=== PATIENT | female | born 1980 | race Caucasian/White ===

== ENCOUNTER 2021-05-07 20:48 | Emergency (ER) | payer MEDICARE, MEDICAID, SELFPAY ==
[2021-05-07] VITALS (17 sets, daily range): BP systolic 163–177; BP diastolic 79–105; PULSE 108–124; RESP 5–26; TEMP 36.7; O2SAT 96–99
--- NOTE | 2021-05-07 21:45 | W.ED.GENAD ---
Discharge Plan Disposition Patient Disposition: HOME Condition: Improving Discharge Details Clinical Impression: Muscle spasm of both lower legs Primary Care Provider: Kym Ríos ED Provider: Chen Nath Home Meds and New Rx's Prescriptions: Continued rizatriptan 10 mg tablet 10 mg PO ONCE RF: 0 baclofen 5 mg tablet 5 mg PO DAILY PRNRF: 0 budesonide-formoterol [Symbicort] 80-4.5 mcg/actuation HFA aerosol inhaler 2 puff inhalation BID Qty: 10.2 RF: 2 atorvastatin 40 mg tablet 40 mg PO DAILY RF: 0 losartan 25 mg tablet 25 mg PO DAILY RF: 0 Hold Instructions: Home Medication placed on hold at Doctor's office albuterol sulfate [Ventolin HFA] 90 mcg/actuation HFA aerosol inhaler 2 puff inhalation Q6H PRNRF: 0 metformin 500 mg tablet 500 mg PO BID Qty: 180 RF: 3 lamotrigine 100 mg tablet 100 mg PO BID Qty: 180 RF: 3 famotidine 20 mg tablet 20 mg PO QHS Qty: 90 RF: 3 escitalopram oxalate 20 mg tablet 20 mg PO BID Qty: 180 RF: 3 baclofen 10 mg tablet 10 mg PO TID Qty: 270 RF: 3 amlodipine 5 mg tablet 5 mg PO DAILY Qty: 90 RF: 3 No Action quetiapine [Seroquel] 25 mg tablet 25 mg PO DAILY RF: 0 (DME) Depend Easy Fit Undergarments Misc See Rx Instructions .ROUTE .MEDSUPPLY Qty: 10 RF: 0 (DME) blood-glucose meter Kit See Rx Instructions .ROUTE .MEDSUPPLY Qty: 1 RF: 0 (DME) lancets [Ultra Fine Lancets] 30 gauge misc See Rx Instructions .ROUTE .MEDSUPPLY Qty: 100 RF: 0 Women's Multivitamin 18 mg iron-400 mcg-500 mg tablet 1 tab PO DAILY RF: 0 tolterodine 4 mg capsule,extended release 24hr 4 mg PO DAILY Qty: 90 RF: 3 calcium carbonate [Oyster Shell Calcium] 500 mg calcium (1,250 mg) tablet 500 mg PO TID Qty: 270 RF: 3 nicotine (polacrilex) [Nicorette] 4 mg lozenge 4 mg buccal Q6H PRN (Reason: nicotine cravings) RF: 0 Discharge Instructions Instructions: Muscle Spasm (ED) Additional Instructions: Follow up with primary care provider in 3-5 days. Return to ED sooner if any worsening or concerns. Increase oral fluids. Please take Tylenol or Ibuprofen with food every 4-6 hours as needed for pain and swelling. Follow-up with PCP your neurologist as needed. Referrals: Kym Ríos DO [Primary Care Provider] - Discharge Data Discharge Date/Time-TO BE ENTERED AT DEPARTURE: 05/08/21 00:20 Medical Decision Making 40-year-old female with a history of multiple sclerosis, asthma, bipolar COPD type 2 diabetes, obesity presents to the ER with chief complaint of 10 out of 10 pain in her right leg from the knee to her foot. Upon initial exam patient is diaphoretic, has increased pain and spasm noted with palpation or any movement. She reports that this began approximately 2 hours prior to arrival. She denies any similar episodes prior to this. She does take baclofen 3 times daily which she did take prior to arrival. She reports taking her normal medications as directed. CBC shows white blood cell count of 15.69 hemoglobin 10.4 hematocrit 34.6 platelets are 618 absolute neutrophils 11.38 CMP shows sodium 142, potassium 3.9 anion gap 16.0 BUN 9 creatinine 1.1 GFR is 54, glucose 158 Urinalysis and bladder scan added on. Patient reevaluation. No more spasming noted patient appears much more comfortable. She is able to move both lower extremities at baseline for her. She remained afebrile heart rate is 108. Fasciculations have subsided at this time. Chart reviewed from April 23 and she was tachycardic at that time as well. 0189: Call made to caregiver Peg who reports she does get confused frequently. Call made to patients ride, plan for DC. Patient discharged via wheelchair hemodynamically stable and at baseline. This text was generated using [employer] system, please disregard any oddities of phrase or misspellings. HPI General Mode of arrival: EMS. Date/Time Provider Initiated Documentation: 05/07/21 21:44. Limitations to Documentation: no limitations. Information obtained by: patient, EMS, RN notes reviewed and old records reviewed. HPI Narrative: 40-year-old female with a history of multiple sclerosis, asthma, bipolar COPD type 2 diabetes, obesity presents to the ER with chief complaint of 10 out of 10 pain in her right leg from the knee to her foot. Upon initial exam patient is diaphoretic, has increased pain and spasm noted with palpation or any movement. She reports that this began approximately 2 hours prior to arrival. She denies any similar episodes prior to this. She does take baclofen 3 times daily which she did take prior to arrival. She reports taking her normal medications as directed. Related Data Home Medications Medication Instructions Recorded Confirmed atorvastatin 40 mg tablet 40 mg PO DAILY 03/11/21 05/07/21 blood-glucose meter #1 ea 03/11/21 05/07/21 diaper,brief,adult,disposable #10 ea 03/11/21 05/07/21 lancets 30 gauge #100 ea 03/11/21 05/07/21 losartan 25 mg tablet 25 mg PO DAILY 03/11/21 05/07/21 albuterol sulfate 90 mcg/actuation 2 puff INHALATION Q6H PRN 03/17/21 05/07/21 aerosol inhaler [id number] carb-vit K 1 tab PO DAILY 03/17/21 05/07/21 18 mg iron-400 mcg-500 mg tablet baclofen 5 mg tablet 5 mg PO DAILY PRN 04/23/21 05/07/21 quetiapine 25 mg tablet 25 mg PO DAILY 04/23/21 05/07/21 rizatriptan 10 mg tablet 10 mg PO ONCE 04/23/21 05/07/21 amlodipine 5 mg tablet 5 mg PO DAILY #90 tab 04/28/21 05/07/21 baclofen 10 mg tablet 10 mg PO TID #270 tab 04/28/21 05/07/21 budesonide-formoterol HFA 80 2 puff INHALATION BID #10.2 g 04/28/21 05/07/21 mcg-4.5 mcg/actuation aerosol inhaler calcium carbonate 500 mg calcium 500 mg PO TID #270 tab 04/28/21 05/07/21 (1,250 mg) tablet escitalopram oxalate 20 mg tablet 20 mg PO BID #180 tab 04/28/21 05/07/21 famotidine 20 mg tablet 20 mg PO QHS #90 tab 04/28/21 05/07/21 lamotrigine 100 mg tablet 100 mg PO BID #180 tab 04/28/21 05/07/21 metformin 500 mg tablet 500 mg PO BID #180 tab 04/28/21 05/07/21 tolterodine 4 mg capsule,extended 4 mg PO DAILY #90 cap 04/28/21 05/07/21 release 24 hr nicotine (polacrilex) 4 mg buccal 4 mg BUCCAL Q6H PRN ea 05/03/21 05/07/21 lozenge Previous Rx's Medication Instructions Recorded amlodipine 5 mg tablet 5 mg PO DAILY #90 tab 04/28/21 baclofen 10 mg tablet 10 mg PO TID #270 tab 04/28/21 budesonide-formoterol HFA 80 2 puff INHALATION BID #10.2 g 04/28/21 mcg-4.5 mcg/actuation aerosol inhaler calcium carbonate 500 mg calcium 500 mg PO TID #270 tab 04/28/21 (1,250 mg) tablet escitalopram oxalate 20 mg tablet 20 mg PO BID #180 tab 04/28/21 famotidine 20 mg tablet 20 mg PO QHS #90 tab 04/28/21 lamotrigine 100 mg tablet 100 mg PO BID #180 tab 04/28/21 metformin 500 mg tablet 500 mg PO BID #180 tab 04/28/21 tolterodine 4 mg capsule,extended 4 mg PO DAILY #90 cap 04/28/21 release 24 hr Allergies Allergy/AdvReac Type Severity Reaction Status Date / Time No Known Allergies Allergy Verified 05/07/21 21:03 General Stated Complaint: [facility] NATASHA: 2 Review of Systems Narrative: Constitutional: Negative for weight loss, alert and oriented, well groomed, normal body habitus, appears uncomfortable. Diaphoretic actively spasming. HEENT: Denies trauma, headaches, blurry vision, nasal discharge, sore throat, trouble swallowing. Chest: Denies chest pain, palpitations, irregular rhythm, hypertension. Respiratory: Denies Shortness of breath, cough, hemoptysis. GI: Denies abdominal pain, nausea, vomiting, diarrhea, constipation. : Denies dysuria, hematuria, flank pain, rectal bleeding. Musculoskeletal: History of MS, muscle spasms to lower extremities worse on the right than the left. Patient usually uses a walker at baseline. Neuro: Denies dizziness, blurry vision, syncope, headache or facial numbness. Baseline is intermittent confusion per caregivers. Hematologic: Denies easy bruising, intolerance to heat or cold, hair loss. [facility] Medical History Asthma Bipolar 1 disorder Cough Depressed bipolar I disorder Disorder of lung Disorder of nervous system Essential hypertension History of pneumonia Hx of chronic obstructive lung disease Insomnia Medication monitoring encounter Multiple sclerosis Muscle weakness Non-alcoholic cirrhosis Non-compliance with treatment Obesity PTSD (post-traumatic stress disorder) Pure hypercholesterolemia Pure hyperglyceridemia Type 2 diabetes mellitus Urinary incontinence Vitamin D deficiency Family History Mother Breast cancer Social History Smoking/Tobacco Use Status: Former Tobacco Use Smoking risk assessment performed?: Yes Alcohol Intake: never Drug use: Never Substance use type: former substance user and marijuana Do you feel safe at home: Yes Do you feel safe in your relationship?: Yes Exam Narrative Exam Narrative: Constitutional: Alert and oriented x3. Appears stated age. Normal body habitus. Patient is diaphoretic complaining of 10 out of 10 pain and muscle spasms. Head: Normocephalic, no trauma. Eyes: Pupils PERRLA, Red reflex noted, EOM's intact. Eyelids symmetrical without lesions, discharge, or swelling. ENT: Bilateral TM's WNL, External ear normal to inspection, no mastoid TTP, swelling, or erythema, Nasal turbinates WNL, no nasal discharge. Normal dentition, Posterior pharynx WNL, no exudate. Dry mucous membranes. Chest: Tachycardic upon initial exam at 121. Normal S1, S2, distal pulses intact. Resp: Lungs clear to auscultation bilaterally, no wheezes, rales, or rhonchi. Musculoskeletal: Normal gait, 5/5 strength to all four extremities. Skin: No suspicious rashes or lesions. Capillary refill less than 2 sec. Neurologic: Cranial nerves II-XII intact. Alert and oriented x 3. Muscle spasms noted to bilateral lower extremities. Positive muscle fasciculations noted with dorsiflexion on the left. Unable to assess on the right Hematologic/Lymphatic: No ecchymosis, no lymphadenopathy. Course Vital Signs Vital signs: Vital Signs Temperature 36.7 C 05/07/21 20:57 Pulse 121 H 05/07/21 20:57 Respiratory Rate 18 05/07/21 20:57 Blood Pressure 165/89 H 05/07/21 20:57 Pulse Oximetry 97 05/07/21 20:57 Temperature 36.7 C 05/07/21 20:57 Temperature Source Tympanic 05/07/21 20:57 Pulse 121 H 05/07/21 20:57 Respiratory Rate 18 05/07/21 20:57 Respiratory Effort 05/07/21 21:04 Blood Pressure 165/89 H 05/07/21 20:57 Blood Pressure Position Sitting 05/07/21 20:57 Pulse Oximetry 97 05/07/21 20:57 Oxygen Delivery Method Room Air 05/07/21 20:57 Oxygen Flow Rate 0 05/07/21 20:57 Pain Level 10 05/07/21 20:57
[2021-05-07] MEDS: diazePAM 10 MG/2 ML SYR 5 MG IVP (22:04)
[2021-05-07] MEDS: Normal Saline 250 ML 500 ML IV ×2 (22:07→23:40)
[2021-05-07 22:09] LABS: Abs Immature Grans 0.08 10^3/uL (0.0-0.06); Absolute Basophil Count 0.08 10^3/uL (0.0-0.2); Absolute Monocyte Count 1.13 10^3/uL (0.1-0.8); Basophils % 0.5; HCT 34.6 % (36.0-46.0); HGB 10.4 g/dL (11.2-15.7); Immature Grans % 0.5; Lymphocytes % 17.3; MCH 22.1 pg (27.0-33.0); MCHC 30.1 % (32.0-36.0); MCV 73.5 fL (80-95); MPV 9.1 fL (8.0-11.0); Monocytes % 7.2; Neutrophils % 72.5; Nucleated RBC 0 %; Platelet Count 618 10^3/uL (130-400); RBC 4.71 10^6/uL (3.93-5.22); RDW-SD 45.4 fL; WBC 15.69 10^3/uL (4.4-10.8)
[2021-05-07 22:10] LABS: Absolute Eosinophil Count 0.31 10^3/uL (0.0-0.7); Absolute Lymphocyte Count 2.71 10^3/uL (1.2-3.4); Absolute Neutrophil Count 11.38 10^3/uL (1.2-6.7)
[2021-05-07 22:18] LABS: Magnesium 2.1 mg/dL (1.8-2.4)
[2021-05-07 22:27] LABS: ALT 46 U/L (14-59); AST 33 U/L (15-37); Albumin 3.8 g/dL (3.4-5.0); Alkaline Phosphatase 106 U/L (46-116); BUN 9 mg/dL (7-18); Bilirubin, Total 0.4 mg/dL (0.2-1.0); CREATININE 1.1 mg/dL (0.55-1.02); Calcium 9.5 mg/dL (8.5-10.1); Chloride 105 mmol/L (98-107); Estimated GFR 54.47 (mL/min/1.73m2); Glucose 158 mg/dL (74-106); Potassium 3.9 mmol/L (3.5-5.1); Sodium 142 mmol/L (136-145); Total Protein 8.5 g/dL (6.4-8.2)
[2021-05-07 22:35] LABS: Anisocytosis 1+; Diff Comment RBC Morph Reviewed; Hypochromasia 1+; Microcytosis 1+
[2021-05-07 22:36] LABS: Poikilocytes 1+
[2021-05-07 23:01] LABS: Bilirubin Negative (Negative); Blood Negative (Negative); Clarity Clear (Clear); Glucose Negative (Negative); Ketones Trace mg/dL (Negative); Leukocyte Esterase Negative (Negative); Nitrite Negative (Negative); Specific Gravity >= 1.030 (1.005-1.025); Urobilinogen 0.2 EU/dL (Up TO 0.2); pH 5.5 (5-8)
== END 2021-05-08 00:20 | disposition home or self-care (01) ==
LOC: ER 05-08 00:27
PROVIDERS: Emergency Provider Registered Nurse Emergency; PCP Student in an Organized Health Care Education/Training Program
DX: M62.838 Other muscle spasm (principal)
CPT/HCPCS: 51701; 80053; 96361; 96374; 99284; 81003; 83735; 85025; 99283; J3360

== ENCOUNTER → 2021-06-02 09:34 | Outpatient (BNVA) | payer MEDICARE, MEDICAID, SELFPAY | PROVIDERS: PCP Student in an Organized Health Care Education/Training Program; Visit Provider Psychiatry & Neurology Neurology | DX: G35 Multiple sclerosis (principal); R25.2 Cramp and spasm; I10 Essential (primary) hypertension; E11.9 Type 2 diabetes mellitus without complications; J44.9 Chronic obstructive pulmonary disease, unspecified | CPT/HCPCS: 99215; G2212 ==

== ENCOUNTER 2021-06-12 13:43 | Emergency (ER) | payer MEDICARE, MEDICAID, SELFPAY ==
--- NOTE | 2021-06-12 13:45 | DI.US_ITS ---
Exam(s) US LOWER EXTREMITY VENOUS RT EXAM: US LOWER EXTREMITY VENOUS RT CLINICAL HISTORY: R leg pain, r/o dvt. TECHNIQUE: Ultrasound performed using standard protocol. COMPARISON: No exams were available for comparison FINDINGS: Duplex venous ultrasound was performed according to the usual protocol. The deep veins are freely com pressible throughout and there is normal flow augmentation with manual calf compression. 2D and Doppl er evaluation are unremarkable. IMPRESSION: No evidence of deep venous thrombosis of the right lower extremity. DATA REPOSITORY:
[2021-06-12 13:49] VITALS: BP 174/94; PULSE 127; TEMP 36.4; O2SAT 97
--- NOTE | 2021-06-12 14:03 | W.ED.GENAD ---
Discharge Plan Disposition Patient Disposition: HOME Condition: Improving Discharge Details Clinical Impression: Pain in right leg, Muscle spasm of right leg, History of multiple sclerosis Primary Care Provider: Kym Ríos ED Provider: Shelbie Quintanilla Home Meds and New Rx's Prescriptions: Continued baclofen 5 mg tablet 5 mg PO DAILY PRNRF: 0 (DME) Depend Easy Fit Undergarments Misc See Rx Instructions .ROUTE .MEDSUPPLY Qty: 10 RF: 0 albuterol sulfate [Ventolin HFA] 90 mcg/actuation HFA aerosol inhaler 2 puff inhalation Q6H PRNRF: 0 metformin 500 mg tablet 500 mg PO BID Qty: 180 RF: 3 lamotrigine 100 mg tablet 100 mg PO BID Qty: 180 RF: 3 famotidine 20 mg tablet 20 mg PO QHS Qty: 90 RF: 3 calcium carbonate [Oyster Shell Calcium] 500 mg calcium (1,250 mg) tablet 500 mg PO TID Qty: 270 RF: 3 amlodipine 5 mg tablet 5 mg PO DAILY Qty: 90 RF: 3 ibuprofen 200 mg tablet 400 mg PO TID PRNRF: 0 No Action baclofen 10 mg tablet 10 mg PO TID Qty: 270 RF: 3 budesonide-formoterol [Symbicort] 80-4.5 mcg/actuation HFA aerosol inhaler 2 puff inhalation DAILY AM Qty: 10.2 RF: 2 escitalopram oxalate 20 mg tablet 20 mg PO DAILY Qty: 90 RF: 3 Women's Multivitamin 18 mg iron-400 mcg-500 mg tablet 1 tab PO DAILY Qty: 90 RF: 3 nicotine (polacrilex) [Nicorette] 4 mg lozenge 4 mg buccal Q6H MDD 12mg PRN (Reason: nicotine cravings) Qty: 84 RF: 2 quetiapine [Seroquel] 25 mg tablet 25 mg PO DAILY MDD 50mg Qty: 45 RF: 3 rizatriptan 10 mg tablet 10 mg PO ONCE Qty: 20 RF: 1 tolterodine 4 mg capsule,extended release 24hr 4 mg PO DAILY Qty: 90 RF: 3 cholecalciferol (vitamin D3) 125 mcg (5,000 unit) capsule 125 mcg PO DAILY Qty: 90 RF: 3 magnesium oxide 500 mg tablet 500 mg PO QHS Qty: 90 RF: 3 ibuprofen 200 mg capsule See Rx Instructions PO .COMPLEX MDD 1200mg PRN (Reason: pain, inflammation, muscle spasm ) Qty: 60 RF: 2 THC Drops See Rx Instructions PO/SL BID & HS MDD 8 drops PRN (Reason: anxiety episodes) Qty: 1 RF: 1 (DME) Manual Wheelchair See Rx Instructions .Route .MEDSUPPLY Qty: 1 RF: 0 Discharge Instructions Instructions: Muscle Spasm (ED), Leg Pain (ED) Additional Instructions: Alternate ice and heat to the affected area(s) several times daily for 20 minutes at a time. Continue to take your Advil as needed and directed for pain. Take the Valium as needed and directed for pain or spasm not relieved with Advil. Be cautious not to take this medication in overdose or frequency as it can cause respiratory depression. Follow-up with your primary care doctor in 1 week. Return to the emergency department with any worsening or new concerning symptoms. Discharge Data Discharge Date/Time-TO BE ENTERED AT DEPARTURE: 06/12/21 15:15 Discharge Physician: Shelbie Quintanilla Medical Decision Making 40-year-old female with a history of multiple sclerosis, COPD, diabetes presents from home for right leg pain since this morning. Caregiver is present at bedside and states that patient has frequent spasms in her right leg usually twice weekly and states this appears consistent with that but has lasted longer than usual. Heart rate elevated to the 120s. She is afebrile and appears nontoxic. Right leg tender throughout and spasm like movement reproducible with light touch. Neurovascularly intact. No evidence of cellulitis or trauma. Suspect tachycardia likely secondary to pain. Will obtain screening labs to rule out electrolyte abnormality and ultrasound to rule out DVT but this appears most likely consistent with her usual muscular spasm. Labs reviewed. Hemoglobin 9.3. Platelets 542. Potassium normal at 4.2. Ultrasound negative for DVT. Patient reassessed and she feels much better. Will send home with 3 tabs of Valium. Advised to follow up with the primary care doctor for re-evaluation. Usual and customary return precautions given prior to discharge. Medical Records Medical records reviewed: Yes I reviewed the patient's medical records. Imaging Data Radiologic Study: Radiologist's impression: US LOWER EXTREMITY VENOUS RT CLINICAL HISTORY: R leg pain, r/o dvt. TECHNIQUE: Ultrasound performed using standard protocol. COMPARISON: No exams were available for comparison FINDINGS: Duplex venous ultrasound was performed according to the usual protocol. The deep veins are freely compressible throughout and there is normal flow augmentation with manual calf compression. 2D and Doppler evaluation are unremarkable. IMPRESSION: No evidence of deep venous thrombosis of the right lower extremity. Lab Data Lab results reviewed: Yes I reviewed the patient's lab results. Labs: Laboratory Tests Range/Units 06/12/21 06/12/21 13:40 13:40 WBC (4.4-10.8) 10^3/uL 11.59 H RBC (3.93-5.22) 10^6/uL 4.32 Hgb (11.2-15.7) g/dL 9.3 L Hct (36.0-46.0) % 31.3 L MCV (80-95) fL 72.5 L MCH (27.0-33.0) pg 21.5 L MCHC (32.0-36.0) % 29.7 L RDW (11.7-14.6) % 16.7 H Plt Count (130-400) 10^3/uL 542 H MPV (8.0-11.0) fL 9.3 Immature Gran % 0.4 Neutrophils % 65.3 Lymphocytes % 24.2 Monocytes % 6.5 Eosinophils % 2.8 Basophils % 0.8 Nucleated RBC % % 0 Absolute Neutrophils (1.2-6.7) 10^3/uL 7.57 H Absolute Lymphocytes (1.2-3.4) 10^3/uL 2.80 Absolute Monocytes (0.1-0.8) 10^3/uL 0.75 Absolute Eosinophils (0.0-0.7) 10^3/uL 0.32 Absolute Basophils (0.0-0.2) 10^3/uL 0.09 RBC Morphology See Below Polychromasia Present Hypochromasia 1+ Poikilocytosis 1+ Anisocytosis 1+ Microcytosis 1+ Sodium (136-145) mmol/L 141 Potassium (3.5-5.1) mmol/L 4.2 Chloride (98-107) mmol/L 106 Carbon Dioxide (21.0-32.0) mmol/L 22.6 Anion Gap (3-11) mmol/L 12.4 H BUN (7-18) mg/dL 13 Creatinine (0.55-1.02) mg/dL 1.1 H Estimated GFR/1.73 m2 (mL/min/1.73m2) 54.47 Glucose (74-106) mg/dL 103 Calcium (8.5-10.1) mg/dL 9.1 Total Bilirubin (0.2-1.0) mg/dL 0.4 AST (15-37) U/L 28 ALT (14-59) U/L 42 Alkaline Phosphatase (46-116) U/L 89 Total Protein (6.4-8.2) g/dL 7.7 Albumin (3.4-5.0) g/dL 3.5 HPI General Mode of arrival: EMS. Date/Time Provider Initiated Documentation: 06/12/21 14:36. Limitations to Documentation: physical limitation. Information obtained by: patient and family. HPI Narrative: Patient is a 40-year-old female with a history of multiple sclerosis with limited mobility who is bedbound at times but does occasionally use a walker presents with right leg pain since this morning. Patient presents with her caregiver who states that patient frequently has right leg spasms occurring twice weekly but states this episode is lasting longer than usual. She states she usually takes Advil and her symptoms resolve but denies any relief with this today. She denies any recent injury or fever. Related Data Home Medications Medication Instructions Recorded Confirmed diaper,brief,adult,disposable #10 ea 03/11/21 06/13/21 albuterol sulfate 90 mcg/actuation 2 puff INHALATION Q6H PRN 03/17/21 06/13/21 aerosol inhaler baclofen 5 mg tablet 5 mg PO DAILY PRN 04/23/21 06/13/21 amlodipine 5 mg tablet 5 mg PO DAILY #90 tab 04/28/21 06/13/21 calcium carbonate 500 mg calcium 500 mg PO TID #270 tab 04/28/21 06/13/21 (1,250 mg) tablet famotidine 20 mg tablet 20 mg PO QHS #90 tab 04/28/21 06/13/21 lamotrigine 100 mg tablet 100 mg PO BID #180 tab 04/28/21 06/13/21 metformin 500 mg tablet 500 mg PO BID #180 tab 04/28/21 06/13/21 ibuprofen 200 mg tablet 400 mg PO TID PRN tab 06/11/21 06/13/21 Manual Wheelchair #1 ea 06/13/21 06/13/21 THC Drops See Rx Instructions PO/SL BID & HS 06/13/21 06/13/21 PRN #1 vial MDD 8 drops baclofen 10 mg tablet 10 mg PO TID #270 tab 06/13/21 06/13/21 budesonide-formoterol HFA 80 2 puff INHALATION DAILY AM #10.2 g 06/13/21 06/13/21 mcg-4.5 mcg/actuation aerosol inhaler cholecalciferol (vitamin D3) 125 125 mcg PO DAILY #90 cap 06/13/21 06/13/21 mcg (5,000 unit) capsule escitalopram oxalate 20 mg tablet 20 mg PO DAILY #90 tab 06/13/21 06/13/21 ibuprofen 200 mg capsule See Rx Instructions PO .COMPLEX 06/13/21 06/13/21 PRN #60 cap MDD 1200mg magnesium oxide 500 mg tablet 500 mg PO QHS #90 tab 06/13/21 06/13/21 msjsqcoo-wec-yanf-FA-Ca carb-vit K 1 tab PO DAILY #90 tab 06/13/21 06/13/21 18 mg iron-400 mcg-500 mg tablet nicotine (polacrilex) 4 mg buccal 4 mg BUCCAL Q6H PRN #84 ea MDD 12mg 06/13/21 06/13/21 lozenge quetiapine 25 mg tablet 25 mg PO DAILY #45 tab MDD 50mg 06/13/21 06/13/21 rizatriptan 10 mg tablet 10 mg PO ONCE #20 tab 06/13/21 06/13/21 tolterodine 4 mg capsule,extended 4 mg PO DAILY #90 cap 06/13/21 06/13/21 release 24 hr Previous Rx's Medication Instructions Recorded amlodipine 5 mg tablet 5 mg PO DAILY #90 tab 04/28/21 calcium carbonate 500 mg calcium 500 mg PO TID #270 tab 04/28/21 (1,250 mg) tablet famotidine 20 mg tablet 20 mg PO QHS #90 tab 04/28/21 lamotrigine 100 mg tablet 100 mg PO BID #180 tab 04/28/21 metformin 500 mg tablet 500 mg PO BID #180 tab 04/28/21 Manual Wheelchair #1 ea 06/13/21 THC Drops See Rx Instructions PO/SL BID & HS 06/13/21 PRN #1 vial MDD 8 drops baclofen 10 mg tablet 10 mg PO TID #270 tab 06/13/21 budesonide-formoterol HFA 80 2 puff INHALATION DAILY AM #10.2 g 06/13/21 mcg-4.5 mcg/actuation aerosol inhaler cholecalciferol (vitamin D3) 125 125 mcg PO DAILY #90 cap 06/13/21 mcg (5,000 unit) capsule escitalopram oxalate 20 mg tablet 20 mg PO DAILY #90 tab 06/13/21 ibuprofen 200 mg capsule See Rx Instructions PO .COMPLEX 06/13/21 PRN #60 cap MDD 1200mg magnesium oxide 500 mg tablet 500 mg PO QHS #90 tab 06/13/21 vwwtklut-jqi-zkwu-FA-Ca carb-vit K 1 tab PO DAILY #90 tab 06/13/21 18 mg iron-400 mcg-500 mg tablet nicotine (polacrilex) 4 mg buccal 4 mg BUCCAL Q6H PRN #84 ea MDD 12mg 06/13/21 lozenge quetiapine 25 mg tablet 25 mg PO DAILY #45 tab MDD 50mg 06/13/21 rizatriptan 10 mg tablet 10 mg PO ONCE #20 tab 06/13/21 tolterodine 4 mg capsule,extended 4 mg PO DAILY #90 cap 06/13/21 release 24 hr Allergies Allergy/AdvReac Type Severity Reaction Status Date / Time No Known Allergies Allergy Verified 06/02/21 09:43 General Stated Complaint: Orthopedic NATASHA: 3 Review of Systems All systems reviewed & are unremarkable except as noted in HPI and below Constitutional Constitutional: Reports as per HPI, Denies chills and Denies fever(s) Eyes Eyes: Denies blurry vision ENT Ears, Nose, Mouth, and Throat: Denies dizziness, Denies sore throat and Denies throat swelling Cardiovascular Cardiovascular: Denies chest pain and Denies dyspnea Respiratory Respiratory: Denies cough and Denies dyspnea Gastrointestinal Gastrointestinal: Denies abdominal pain, Denies diarrhea and Denies vomiting Genitourinary Genitourinary: Denies hematuria and Denies dysuria Musculoskeletal Musculoskeletal: Denies back pain, Denies numbness and Reports other (leg pain) Integumentary/Breasts Skin/Breast: Denies lesions and Denies rash Neurologic Neurologic: Denies dizziness, Denies localized weakness and Denies numbness Allergic/Immunologic Allergic/Immunologic: Denies throat swelling PFSH Medical History (Updated 06/13/21 @ 13:33 by Kym Ríos DO) Anemia Anxiety Solaria shares long Hx of anxiety, with episodes of near-panic ... she would very much appreciate talk therapy support. Asthma Bipolar 1 disorder Poorly controlled, w/ some improvement post [place] (Sep 2020-February 2021). Hx living independently until at which time she was placed in a assisted ([facility]) due to disability from her MS, but after 1 year had to leave due to poor mental health. [ ] [facility] for local psych care. COPD (chronic obstructive pulmonary disease) Essential hypertension Insomnia Multiple sclerosis Muscle weakness Non-alcoholic cirrhosis Non-compliance with treatment Obesity PTSD (post-traumatic stress disorder) Pure hypercholesterolemia Pure hyperglyceridemia Type 2 diabetes mellitus Urinary incontinence Vitamin D deficiency Surgical History History of biopsy liver S/P cholecystectomy S/P tonsillectomy Family History Mother Breast cancer Social History Smoking/Tobacco Use Status: Former Tobacco Use Tobacco: How many years used: 9 Quit status: quit date established (09/2021, using nicotine lozenges now) Smoking risk assessment performed?: Yes Alcohol Intake: never Drug use: Never Substance use type: former substance user and marijuana Caregiver/Support person: Yes (Peg. Pt lives in her house) Details: Pt relocated from [place] to [facility]. Peg agreed to be caregiver. Household members: caregiver and other Details: BF-Dion. Lives in [facility]. Son-Helen, adopted out at . Housing: house Number of Children: 1 Do you need help understanding health information?: Often current occupation: disabled. 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 Son. Given up for adoption. Pt has no contact. Exam Const General: cooperative, no acute distress and ill appearing chronically Nutritional Appearance: obese morbidly obese Orientation: alert, awake and oriented x3 HENMT Head: normal to inspection Face and sinus: normal facial exam Eyes General: appearance normal, both eyes and all related structures Pupils: PERRL EOM: EOM intact bilaterally Neck Neck: normal visual inspection and No submandibular swelling Lymphatic: no lymphadenopathy noted Chest Chest: normal inspection of the chest and no tenderness Resp Effort & Inspection: normal respiratory effort and able to speak in complete sentences Auscultation: clear to auscultation bilaterally Cardio Rate: regular rate Rhythm: regular rhythm GI Inspection: normal to inspection Palpation: soft, not firm, not rigid and nontender Auscultation: normal bowel sounds Skin General skin exam: no rashes or lesions noted Neuro General: patient alert, patient awake and patient oriented x3 Cognition: normal cognition Speech: speech normal Motor: muscle tone normal throughout Sensory Exam: no sensory deficits noted Extrem Other: Intermittent spastic-like movement of right leg that occurs mainly with touching. Right foot plantar flexes with palpation. There is some right calf tenderness. There is no erythema, edema, ecchymosis, rash. Psych Appearance: grossly normal Mental Status: mental status grossly normal Speech and Movement: speech and movement normal Affect: normal affect Course Vital Signs Vital signs: Vital Signs Temperature 97.5 F L 06/12/21 13:49 Pulse 127 H 06/12/21 13:49 Blood Pressure 174/94 H 06/12/21 13:49 Pulse Oximetry 97 06/12/21 13:49 Temperature 97.5 F L 06/12/21 13:49 Temperature Source Temporal Artery Scan 06/12/21 13:49 Pulse 127 H 06/12/21 13:49 Blood Pressure 174/94 H 06/12/21 13:49 Blood Pressure Position Supine 06/12/21 13:49 Pulse Oximetry 97 06/12/21 13:49 Oxygen Delivery Method Room Air 06/12/21 13:49 Oxygen Flow Rate 0 06/12/21 13:49 Pain Level 9 06/12/21 13:49
[2021-06-12] MEDS: Ketorolac 30 MG/ML VIAL IVP (14:07)
[2021-06-12 14:12] LABS: Abs Immature Grans 0.05 10^3/uL (0.0-0.06); Absolute Basophil Count 0.09 10^3/uL (0.0-0.2); Absolute Eosinophil Count 0.32 10^3/uL (0.0-0.7); Absolute Monocyte Count 0.75 10^3/uL (0.1-0.8); Absolute Neutrophil Count 7.57 10^3/uL (1.2-6.7); Basophils % 0.8; Eosinophils % 2.8; HCT 31.3 % (36.0-46.0); HGB 9.3 g/dL (11.2-15.7); Immature Grans % 0.4; Lymphocytes % 24.2; MCH 21.5 pg (27.0-33.0); MCHC 29.7 % (32.0-36.0); MCV 72.5 fL (80-95); MPV 9.3 fL (8.0-11.0); Monocytes % 6.5; Neutrophils % 65.3; Nucleated RBC 0 %; Platelet Count 542 10^3/uL (130-400); RBC 4.32 10^6/uL (3.93-5.22); RDW 16.7 % (11.7-14.6); RDW-SD 43.4 fL; WBC 11.59 10^3/uL (4.4-10.8)
[2021-06-12 14:31] LABS: Anisocytosis 1+; Diff Comment Diff Reviewed; Hypochromasia 1+; Microcytosis 1+; Polychromasia Present
[2021-06-12 14:32] LABS: ALT 42 U/L (14-59); AST 28 U/L (15-37); Albumin 3.5 g/dL (3.4-5.0); Alkaline Phosphatase 89 U/L (46-116); Anion Gap 12.4 mmol/L (3-11); BUN 13 mg/dL (7-18); Bilirubin, Total 0.4 mg/dL (0.2-1.0); CO2 22.6 mmol/L (21.0-32.0); CREATININE 1.1 mg/dL (0.55-1.02); Calcium 9.1 mg/dL (8.5-10.1); Chloride 106 mmol/L (98-107); Estimated GFR 54.47 (mL/min/1.73m2); Glucose 103 mg/dL (74-106); Poikilocytes 1+; Potassium 4.2 mmol/L (3.5-5.1); Sodium 141 mmol/L (136-145); Total Protein 7.7 g/dL (6.4-8.2)
[2021-06-12] MEDS: Normal Saline 500 ML IV (15:15)
[2021-06-12] MEDS: Dexamethasone 10 MG/ML VIAL PO (15:16)
[2021-06-12] MEDS: diazePAM 5 MG TAB PO (15:16)
[2021-06-12] MEDS: diazePAM 5 MG TAB 15 MG PO (17:10)
[2021-06-12 18:50] VITALS: BP 163/93; PULSE 112; RESP 20; TEMP 36.4; O2SAT 98
== END 2021-06-12 15:15 | disposition home or self-care (01) ==
PROVIDERS: Emergency Provider Physician Assistant; PCP Student in an Organized Health Care Education/Training Program
DX: M79.604 Pain in right leg (principal); M62.838 Other muscle spasm; G35 Multiple sclerosis
CPT/HCPCS: 36415; 80053; 96361; 96374; 99284; 85025; 93971; 99285; J1100; J1885

== ENCOUNTER 2021-06-13 14:26 | Outpatient (REF) | payer MEDICARE, MEDICAID, SELFPAY ==
[2021-06-13 16:47] LABS: Iron 21 ug/dL (50-170); Total Iron Binding Capacity 360 ug/dL (250-450); Transferrin Sat 6 % (15-50)
[2021-06-13 17:00] LABS: Ferritin 7 ng/mL (8-252); TSH (W/Ref FT4) 2.24 uIU/mL (0.36-3.74)
== END 2021-06-13 14:27 | disposition home or self-care (01) ==
LOC: LBN 14:26
PROVIDERS: PCP Student in an Organized Health Care Education/Training Program; Visit Provider Student in an Organized Health Care Education/Training Program
DX: D64.9 Anemia, unspecified (principal)
CPT/HCPCS: 82728; 83540; 83550; 84443; 85045

== ENCOUNTER 2021-07-02 04:27 | Outpatient (RCR) | payer MEDICARE, MEDICAID, SELFPAY ==
[2021-06-22] MEDS: IRON SUCROSE COMPLEX 200 MG in Normal Saline 100 ML 440 MG IVPB (13:16)
[2021-06-22] MEDS: Normal Saline Flush 10 ML SYR IVP (14:01)
[2021-06-24] MEDS: IRON SUCROSE COMPLEX 200 MG in Normal Saline 100 ML 440 MG IVPB (09:45)
[2021-06-24] MEDS: Normal Saline Flush 10 ML SYR IVP (09:45)
[2021-06-28] MEDS: IRON SUCROSE COMPLEX 200 MG in Normal Saline 100 ML 440 MG IVPB (11:11)
[2021-06-28] MEDS: Normal Saline Flush 10 ML SYR IVP (11:19)
[2021-06-30] MEDS: IRON SUCROSE COMPLEX 200 MG in Normal Saline 100 ML 440 MG IVPB (08:02)
[2021-06-30] MEDS: Normal Saline Flush 10 ML SYR IVP (08:02)
[2021-07-02] MEDS: Normal Saline Flush 10 ML SYR IVP (08:09)
[2021-07-02] MEDS: IRON SUCROSE COMPLEX 200 MG in Normal Saline 100 ML 440 MG IVPB (08:10)
== END 2021-07-13 23:59 | disposition home or self-care (01) ==
LOC: INF 04:27
PROVIDERS: PCP Student in an Organized Health Care Education/Training Program; Visit Provider Student in an Organized Health Care Education/Training Program
DX: D50.9 Iron deficiency anemia, unspecified (principal)
CPT/HCPCS: 36415; 96365; J1756

== ENCOUNTER → 2021-07-05 13:05 | Outpatient (BNVA) | payer MEDICARE, MEDICAID, SELFPAY | PROVIDERS: PCP Student in an Organized Health Care Education/Training Program; Referring Provider Student in an Organized Health Care Education/Training Program; Visit Provider Nurse Practitioner Gerontology | DX: R32 Unspecified urinary incontinence (principal); G35 Multiple sclerosis; I10 Essential (primary) hypertension; J44.9 Chronic obstructive pulmonary disease, unspecified; E11.9 Type 2 diabetes mellitus without complications | CPT/HCPCS: 99215 ==

== ENCOUNTER 2021-08-05 17:08 | Outpatient (REF) | payer MEDICARE, MEDICAID, SELFPAY ==
--- NOTE | 2021-08-05 15:15 | PAPFT_PTH ---
PATIENT: Gay Ochoa LOC: [facility] U#:[id number] AGE/SX: 41/F ROOM: RE08/05/[address]: Melody Caanles : 1980 BED: DIS: 08/05/2021 SPEC #: [id number] RECD: 08/05/21 17:43 STATUS: JEANNIEAmberly REQ #: [id number] MARLIN: 08/05/21 15:[address]: Melody Canales DEPT: [facility] Cytology RECD BY: Meagan Cid ENTERED: 08/05/21 17:44 SP TYPE: PAPFT OTHR DR: Kym Ríos DO Tissues: 1 - CX/ENDOCX FOR PAP SMEARS Procedures: PAP THIN PREP/UVM Screening HPV DNA PROBE Comments: [id number] (HPV 16 & 18/45)
== END 2021-08-05 17:09 | disposition home or self-care (01) ==
LOC: LBN 17:08
PROVIDERS: PCP Student in an Organized Health Care Education/Training Program; Visit Provider Obstetrics & Gynecology Gynecology
DX: Z12.4 Encounter for screening for malignant neoplasm of cervix (principal); Z11.51 Encounter for screening for human papillomavirus (HPV); B97.7 Papillomavirus as the cause of diseases classified elsewhere; Z01.419 Encounter for gynecological examination (general) (routine) without abnormal findings
CPT/HCPCS: 88142; 87624

== ENCOUNTER → 2021-08-11 08:43 | Outpatient (BNVA) | payer MEDICARE, MEDICAID, SELFPAY | PROVIDERS: PCP Student in an Organized Health Care Education/Training Program; Referring Provider Student in an Organized Health Care Education/Training Program; Visit Provider Nurse Practitioner Gerontology | DX: R32 Unspecified urinary incontinence (principal); G35 Multiple sclerosis | CPT/HCPCS: 99214 ==

== ENCOUNTER 2021-09-02 01:59 | Outpatient (CLI) | payer MEDICARE, MEDICAID, SELFPAY ==
--- NOTE | 2021-09-02 | DI.MAMMO_ITS ---
Exam(s) MG MAMMO SCREENING 60 MIN DUR EXAM: MG MAMMO SCREENING 60 MIN DUR CLINICAL HISTORY: SCREENING,. TECHNIQUE: Bilateral full field digital CC and MLO mammographic images were obtained with 3D tomosyn thesis and utilizing computer aided detection (CAD). COMPARISON: None. This is a baseline mammogram on this 41-year-old patient FINDINGS: There are no spiculated masses nor malignant appearing microcalcification groups. There is no significant architectural distortion nor skin thickening-retraction. IMPRESSION: No radiographic evidence of malignancy. BI-RADS Category 1 - Negative Breast Density - Category B - Scattered areas of fibroglandular density Breast density Category C or D implies that the patient has dense breast tissue. Dense breast tissue can make it harder to find cancer on a mammogram. Dense breast tissue is also associated with an incr eased risk of breast cancer. This information about the result of the mammogram report was provided to the patient to raise their awareness. Use this report when you speak with the patient about their risks for breast cancer, which includes their family history. At that time, you may recommend additional screening tests (Ultrasoun d or MRI) as these tests may add significant information. A negative radiographic report should not delay biopsy if a dominant or clinically suspicious mass is present. Up to ten percent of cancers are not identified on mammography. A negative report may reinforce clinical impression. Adenosis and dense breasts may obscure an underlying neoplasm. False positive reports average 6 to 10%. Patient will receive a letter notifying them of these results.
== END 2021-09-02 02:19 ==
PROVIDERS: PCP Student in an Organized Health Care Education/Training Program; Visit Provider Obstetrics & Gynecology Gynecology
DX: Z12.31 Encounter for screening mammogram for malignant neoplasm of breast (principal); G35 Multiple sclerosis
CPT/HCPCS: 77063; 77067